=== PATIENT | male | born 1945 | race Caucasian/White ===

== ENCOUNTER 2016-09-06 12:30 | Outpatient (CLI) | payer MEDICARE, OTHER ==
--- NOTE | 2016-09-06 15:02 | RAD ---
THREE VIEWS RIGHT ANKLE: Comparison: None. History: Right ankle pain. FINDINGS: Three views of the right ankle shows no evidence of acute fracture or dislocation. Moderate lateral soft tissue swelling. There is fragmentation adjacent to the tip of the lateral malleolus which ma y be sequella from remote trauma. IMPRESSION: No evidence of acute osseous abnormality. POS: LEONORA
--- NOTE | 2016-09-06 16:24 | RAD ---
FOUR VIEWS LEFT KNEE: Comparison: None. History: Left knee pain. FINDINGS: Four views of the left knee shows no evidence of acute fracture or dislocation. Moderate to severe tricompartmental joint space narrowing and osteophyte formation is seen consistent with osteoarthrit is. No knee effusion is seen. There is calcification within the menisci which can been with CPPD. IMPRESSION: 1. Severe left knee osteoarthritis without acute osseous abnormality. POS: LILIAN
== END 2016-09-06 12:31 | disposition home or self-care (01) ==
LOC: NAV RAD 12:30
PROVIDERS: ATTEND Internal Medicine
DX: M25.562 Pain in left knee (principal); M25.571 Pain in right ankle and joints of right foot; M17.12 Unilateral primary osteoarthritis, left knee